=== PATIENT | male | born 1975 | race Caucasian/White ===

== ENCOUNTER → 2016-09-22 | Outpatient (CLI) | payer OTHER ==
[~2016-09-22] MED LIST: APRESOLINE100 MG PO; APRESOLINE50 MG PO; ATENOLOL50 MG PO; CALCIUM ACETAT667 M2 PO; CALCIUM ACETAT667 MG PO; CALCIUM CARB1 TABLET PO; COZAAR50 MG PO; EPOGEN,PRO10000 UNIT SC; ERGOCALCIF50000 UNIT PO; HYDRALAZINE HCL50 MG PO; METOPROLOL TART25 MG PO; METOPROLOL TART50 MG PO; MIRCERA50 MCG/0.3 IV; NEXIUM40 MG PO; NIFEDICAL XL60 MG PO; NORMODYNE,TRAN200 MG PO; NORVASC10 MG PO; PRINIVIL20 MG PO; PROCARDIA10 MG PO; RENA-VITE RX T1 EACH PO; RENAPLEX D PO; SENSIPAR30 MG PO; SODIUM CHLORIDE1 G1 PO; TAMSULOSIN HCL0.4 MG PO; TERAZOSIN HCL2 MG PO; VITAMIN D-3 401 EACH PO
[2016-09-22 10:53] LABS: HEMATOCRIT 26.5 % (38.0-50.0); MCHC 30.6 G/DL (30.0-36.0); MEAN PLAT.VOLUME 9.3 uM^3 (9.0-12.4); PLATELET COUNT 175 K/uL (156-360); RBC DIS.WIDTH-CV 17.9 % (11.8-14.6); RBC DIS.WIDTH-SD 61.4 % (39-53); RED BLOOD COUNT 2.79 M/uL (4.00-5.50); WHITE BLOOD COUNT 5.3 K/uL (4.1-10.2)
[2016-09-22 11:03] LABS: INTER. NORMALIZED RATIO 1.3; PROTHROMBIN TIME 12.8 (9.2-11.2); PTT 31.8 (25-32)
[2016-09-22 11:08] LABS: EOSINOPHIL (%) 2.3 % (0-5); EOSINOPHIL COUNT 0.1 K/uL (0-0.3); IMMATURE GRANULOCYTE (%) 0.2 % (0.0-0.7); LYMPHOCYTE COUNT 0.6 K/uL (1.0-2.8); MONOCYTE (%) 9.9 % (3-12); MONOCYTE COUNT 0.5 K/uL (0-0.8); NEUTROPHIL (%) 76.5 % (45-76); NEUTROPHIL COUNT 4.1 K/uL (1.8-6.4)
[2016-09-22 12:47] LABS: ABS NEUTROPHIL COUNT 4.48; ANISOCYTOSIS 3+; EOSINOPHIL ABS CT 0.05; HYPOCHROMASIA 3+; MACROCYTES 1+; MICROCYTOSIS 2+; PLAT.SUFFICIENCY ADEQUATE; POLYCHROMASIA OCC; USER ID TLW
[2016-09-24 13:43] LABS: Flow Clinical Information ANEMIA (()); Flow Number of Markers 22 (()); Flow Spec Viability 96 % (()); Flow Specimen Type BONE MARROW (())
== END | disposition home or self-care (01) ==
LOC: EDSTATUS 09-07 09:00 → OPR 09-07 09:00
PROVIDERS: Internal Medicine Hematology & Oncology
PROC: 07DS3ZX Extraction of Vertebral Bone Marrow, Percutaneous Approach, Diagnostic (ICD-10-PCS; principal; 2016-09-22)
DX: D63.1 Anemia in chronic kidney disease (principal); R16.1 Splenomegaly, not elsewhere classified; I12.0 Hypertensive chronic kidney disease with stage 5 chronic kidney disease or end stage renal disease; N18.6 End stage renal disease
CPT/HCPCS: 77012; 85025; 85610; 85730; 85999; 88184 90; 88185 90; 88189 90; 88237 90; 88264 90; 88280 90; 88291 90; J3010

== ENCOUNTER → 2016-12-14 | Outpatient (CLI) | payer OTHER ==
[~2016-12-14] MED LIST changes: +FERRIC CITRATE210 MG PO; +NABI650T PO
[2016-12-14 09:08] LABS: TYPE OF FLUID PARACENTESIS
[2016-12-14 10:05] LABS: BODY FLUID LDH 107 IU/L; BODY FLUID PROTEIN 4.7 G/DL
[2016-12-14 11:37] LABS: BODY FLUID EOSINOPHILS 0 % (0-25); BODY FLUID RBC'S 1000 /MM^3 (0-100); BODY FLUID WBC'S 349 /MM^3 (0-500); MONONUCLEAR WBC'S 76 %; POLYNUCLEAR WBC'S 24 % (0-25)
== END | disposition home or self-care (01) ==
LOC: RAD 08:04
PROVIDERS: Internal Medicine Nephrology
PROC: 0W9G3ZZ Drainage of Peritoneal Cavity, Percutaneous Approach (ICD-10-PCS; principal; 2016-12-14)
DX: R18.8 Other ascites (principal)
CPT/HCPCS: 82945; 83615 91; 84157; 89051

== ENCOUNTER → 2017-01-12 | Outpatient (CLI) | payer OTHER ==
[2017-01-12 08:45] LABS: TYPE OF FLUID PERITONEAL
[2017-01-12 09:34] LABS: BODY FLUID EOSINOPHILS 0 % (0-25); BODY FLUID RBC'S 1000 /MM^3 (0-100); BODY FLUID WBC'S 627 /MM^3 (0-500); MONONUCLEAR WBC'S 76 %; POLYNUCLEAR WBC'S 24 % (0-25)
[2017-01-12 09:47] LABS: BODY FLUID PROTEIN 4.7 G/DL
== END | disposition home or self-care (01) ==
LOC: RAD 01-10 08:30
PROVIDERS: Internal Medicine Gastroenterology
PROC: 0W9G3ZZ Drainage of Peritoneal Cavity, Percutaneous Approach (ICD-10-PCS; principal; 2017-01-12)
DX: R18.8 Other ascites (principal)
CPT/HCPCS: 84157; 87070; 87205; 88108; 88305; 89051

== ENCOUNTER → 2017-02-14 | Outpatient (CLI) | payer OTHER | END | disposition home or self-care (01) | LOC: RAD 12:53 | PROC: 0W9G3ZZ Drainage of Peritoneal Cavity, Percutaneous Approach (ICD-10-PCS; principal; 2017-02-14) | DX: R18.8 Other ascites (principal) ==

== ENCOUNTER → 2017-03-17 | Outpatient (CLI) | payer OTHER | END | disposition home or self-care (01) | LOC: RAD 08:13 | PROC: 0W9G3ZZ Drainage of Peritoneal Cavity, Percutaneous Approach (ICD-10-PCS; principal; 2017-03-17) | DX: R18.8 Other ascites (principal) | CPT/HCPCS: 49083 ==

== ENCOUNTER → 2017-04-06 | Outpatient (CLI) | payer OTHER | END | disposition home or self-care (01) | LOC: RAD 13:11 | PROC: 0W9G3ZZ Drainage of Peritoneal Cavity, Percutaneous Approach (ICD-10-PCS; principal; 2017-04-06) | DX: R18.8 Other ascites (principal) | CPT/HCPCS: 49083 ==

== ENCOUNTER → 2017-04-18 | Outpatient (CLI) | payer OTHER ==
[2017-04-18 09:14] LABS: INTER. NORMALIZED RATIO 1.4; PROTHROMBIN TIME 15.6 SEC (10.2-12.9)
[2017-04-18 09:17] LABS: PTT 37.9 SEC (25-37)
== END | disposition home or self-care (01) ==
LOC: RAD 08:05
PROVIDERS: Radiology Diagnostic Radiology
PROC: 0W9G3ZZ Drainage of Peritoneal Cavity, Percutaneous Approach (ICD-10-PCS; principal; 2017-04-18)
DX: R18.8 Other ascites (principal)
CPT/HCPCS: 49083; 85610; 85730

== ENCOUNTER 2017-04-28 18:50 | Emergency (ER) | payer OTHER ==
[~2017-04-28] VITALS: Ht 177.8 cm; Wt 119.6 kg
[2017-04-28 19:54] LABS: HEMATOCRIT 24.7 % (38.0-50.0); MCH 27.5 PG (29.0-34.0); MCHC 31.2 G/DL (30.0-36.0); MCV 88.2 FL (86-99); MEAN PLAT.VOLUME 8.2 uM^3 (9.0-12.4); PLATELET COUNT 192 K/uL (156-360); RBC DIS.WIDTH-SD 55.4 % (39-53); WHITE BLOOD COUNT 5.3 K/uL (4.1-10.2)
[2017-04-28 20:07] LABS: CHLORIDE 103 mEq/L (99-109); POTASSIUM 5.1 mEq/L (3.7-5.4); SODIUM 143 mEq/L (136-147)
[2017-04-28 20:09] LABS: GLUCOSE 106 mg/dL (70-99)
[2017-04-28 20:10] LABS: ANION GAP 11 MEQ/L (2-14)
[2017-04-28 20:11] LABS: TOTAL BILIRUBIN 0.9 mg/dL (0.0-1.0)
[2017-04-28 20:13] LABS: ALKALINE PHOSPHATASE 135 IU/L (3-129); GFR ESTIMATE (CALCULATED) 11 mL/min/
[2017-04-28 20:14] LABS: UREA NITROGEN (BUN) 26 mg/dL (9-23)
[2017-04-28 22:52] VITALS: BP 155/95
== END 2017-04-28 23:09 | disposition home or self-care (01) ==
LOC: EME 18:50
PROVIDERS: Physician Assistant Medical
PROC: 0W9G3ZZ Drainage of Peritoneal Cavity, Percutaneous Approach (ICD-10-PCS; principal; 2017-04-28)
DX: T80.89XA Other complications following infusion, transfusion and therapeutic injection, initial encounter (principal); R18.8 Other ascites; Y84.1 Kidney dialysis as the cause of abnormal reaction of the patient, or of later complication, without mention of misadventure at the time of the procedure; N18.6 End stage renal disease; I12.0 Hypertensive chronic kidney disease with stage 5 chronic kidney disease or end stage renal disease; K21.9 Gastro-esophageal reflux disease without esophagitis; Z87.891 Personal history of nicotine dependence
CPT/HCPCS: 49083; 80053; 81003; 85027; 99281; 99284

== ENCOUNTER → 2017-05-04 | Outpatient (CLI) | payer OTHER | END | disposition home or self-care (01) | LOC: RAD 11:17 | PROC: 0W9G3ZZ Drainage of Peritoneal Cavity, Percutaneous Approach (ICD-10-PCS; principal; 2017-05-04) | DX: R18.8 Other ascites (principal) | CPT/HCPCS: 49083 ==

== ENCOUNTER → 2017-05-10 | Outpatient (CLI) | payer OTHER | END | disposition home or self-care (01) | LOC: RAD 13:05 | PROC: 0W9G3ZZ Drainage of Peritoneal Cavity, Percutaneous Approach (ICD-10-PCS; principal; 2017-05-10) | DX: R18.8 Other ascites (principal) | CPT/HCPCS: 49083 ==

== ENCOUNTER → 2017-05-17 | Outpatient (CLI) | payer OTHER | END | disposition home or self-care (01) | LOC: RAD 12:40 | PROC: 0W9G3ZZ Drainage of Peritoneal Cavity, Percutaneous Approach (ICD-10-PCS; principal; 2017-05-17) | DX: R18.8 Other ascites (principal) | CPT/HCPCS: 49083 ==

== ENCOUNTER → 2017-05-24 | Outpatient (CLI) | payer OTHER | END | disposition home or self-care (01) | LOC: RAD 12:38 | PROC: 0W9G3ZZ Drainage of Peritoneal Cavity, Percutaneous Approach (ICD-10-PCS; principal; 2017-05-24) | DX: R18.8 Other ascites (principal) | CPT/HCPCS: 49083 ==

== ENCOUNTER → 2017-05-31 | Outpatient (CLI) | payer OTHER | END | disposition home or self-care (01) | LOC: RAD 12:46 | PROC: 0W9G3ZZ Drainage of Peritoneal Cavity, Percutaneous Approach (ICD-10-PCS; principal; 2017-05-31) | DX: R18.8 Other ascites (principal) | CPT/HCPCS: 49083 ==

== ENCOUNTER → 2017-06-07 | Outpatient (CLI) | payer OTHER | END | disposition home or self-care (01) | LOC: RAD 12:45 | PROC: 0W9G3ZZ Drainage of Peritoneal Cavity, Percutaneous Approach (ICD-10-PCS; principal; 2017-06-07) | DX: R18.8 Other ascites (principal) | CPT/HCPCS: 49083 ==

== ENCOUNTER → 2017-06-14 | Outpatient (CLI) | payer OTHER | END | disposition home or self-care (01) | LOC: RAD 12:46 | PROC: 0W9G3ZZ Drainage of Peritoneal Cavity, Percutaneous Approach (ICD-10-PCS; principal; 2017-06-14) | DX: R18.8 Other ascites (principal) | CPT/HCPCS: 49083 ==

== ENCOUNTER → 2017-06-21 | Outpatient (CLI) | payer OTHER | END | disposition home or self-care (01) | LOC: RAD 12:20 | PROC: 0W9G3ZZ Drainage of Peritoneal Cavity, Percutaneous Approach (ICD-10-PCS; principal; 2017-06-21) | DX: R18.8 Other ascites (principal) | CPT/HCPCS: 49083 ==

== ENCOUNTER → 2017-06-22 | Outpatient (CLI) | payer OTHER | END | disposition home or self-care (01) | LOC: RAD 12:56 | PROC: 0W9G3ZZ Drainage of Peritoneal Cavity, Percutaneous Approach (ICD-10-PCS; principal; 2017-06-22) | DX: R18.8 Other ascites (principal) | CPT/HCPCS: 49083 ==

== ENCOUNTER → 2017-06-28 | Outpatient (CLI) | payer OTHER | END | disposition home or self-care (01) | LOC: RAD 12:10 | PROC: 0W9G3ZZ Drainage of Peritoneal Cavity, Percutaneous Approach (ICD-10-PCS; principal; 2017-06-28) | DX: R18.8 Other ascites (principal) | CPT/HCPCS: 49083 ==

== ENCOUNTER → 2017-07-05 | Outpatient (CLI) | payer OTHER | END | disposition home or self-care (01) | LOC: RAD 12:40 | PROC: 0W9G3ZZ Drainage of Peritoneal Cavity, Percutaneous Approach (ICD-10-PCS; principal; 2017-07-05) | DX: R18.8 Other ascites (principal) | CPT/HCPCS: 49083 ==

== ENCOUNTER → 2017-07-19 | Outpatient (CLI) | payer OTHER ==
[~2017-07-19] VITALS: Ht 170.2 cm; Wt 115.0 kg
== END | disposition home or self-care (01) ==
LOC: RAD 12:39
PROC: 0W9G3ZZ Drainage of Peritoneal Cavity, Percutaneous Approach (ICD-10-PCS; principal; 2017-07-19)
DX: R18.8 Other ascites (principal)
CPT/HCPCS: 49083

== ENCOUNTER → 2017-07-26 | Outpatient (CLI) | payer OTHER | END | disposition home or self-care (01) | LOC: RAD 12:30 | PROC: 0W9G3ZZ Drainage of Peritoneal Cavity, Percutaneous Approach (ICD-10-PCS; principal; 2017-07-26) | DX: R18.8 Other ascites (principal) | CPT/HCPCS: 49083 ==

== ENCOUNTER → 2017-08-02 | Outpatient (CLI) | payer OTHER ==
[~2017-08-02] VITALS: Ht 179.1 cm; Wt 109.0 kg
== END | disposition home or self-care (01) ==
LOC: RAD 09:00
PROC: 0W9G3ZZ Drainage of Peritoneal Cavity, Percutaneous Approach (ICD-10-PCS; principal; 2017-08-02)
DX: R16.1 Splenomegaly, not elsewhere classified (principal)
CPT/HCPCS: 49083; 76705

== ENCOUNTER → 2017-08-09 | Outpatient (CLI) | payer OTHER | END | disposition home or self-care (01) | LOC: RAD 12:20 | PROC: 0W9G3ZZ Drainage of Peritoneal Cavity, Percutaneous Approach (ICD-10-PCS; principal; 2017-08-09) | DX: R18.8 Other ascites (principal) | CPT/HCPCS: 49083 ==

== ENCOUNTER → 2017-08-16 | Outpatient (CLI) | payer OTHER | END | disposition home or self-care (01) | LOC: RAD 13:05 | PROC: 0W9G3ZZ Drainage of Peritoneal Cavity, Percutaneous Approach (ICD-10-PCS; principal; 2017-08-16) | DX: R18.8 Other ascites (principal) | CPT/HCPCS: 49083 ==

== ENCOUNTER → 2017-08-22 | Outpatient (CLI) | payer OTHER | END | disposition home or self-care (01) | LOC: RAD 13:00 | PROC: 0W9G3ZZ Drainage of Peritoneal Cavity, Percutaneous Approach (ICD-10-PCS; principal; 2017-08-22) | DX: R18.8 Other ascites (principal) | CPT/HCPCS: 49083 ==

== ENCOUNTER → 2017-08-30 | Outpatient (CLI) | payer OTHER | END | disposition home or self-care (01) | LOC: RAD 12:41 | PROC: 0W9G3ZZ Drainage of Peritoneal Cavity, Percutaneous Approach (ICD-10-PCS; principal; 2017-08-30) | DX: R18.8 Other ascites (principal) | CPT/HCPCS: 49083 ==

== ENCOUNTER → 2017-09-06 | Outpatient (CLI) | payer OTHER | END | disposition home or self-care (01) | LOC: RAD 13:05 | PROC: 0W9G3ZZ Drainage of Peritoneal Cavity, Percutaneous Approach (ICD-10-PCS; principal; 2017-09-06) | DX: R18.8 Other ascites (principal) | CPT/HCPCS: 49083 ==

== ENCOUNTER → 2017-09-12 | Outpatient (CLI) | payer OTHER | END | disposition home or self-care (01) | LOC: RAD 08:15 | PROC: 0W9G3ZZ Drainage of Peritoneal Cavity, Percutaneous Approach (ICD-10-PCS; principal; 2017-09-12) | DX: R18.8 Other ascites (principal) | CPT/HCPCS: 49083 ==

== ENCOUNTER → 2017-09-20 | Outpatient (CLI) | payer OTHER | END | disposition home or self-care (01) | LOC: RAD 12:42 | PROC: 0W9G3ZZ Drainage of Peritoneal Cavity, Percutaneous Approach (ICD-10-PCS; principal; 2017-09-20) | DX: R18.8 Other ascites (principal) | CPT/HCPCS: 49083 ==

== ENCOUNTER → 2017-09-27 | Outpatient (CLI) | payer OTHER ==
[2017-09-27 14:58] LABS: INTER. NORMALIZED RATIO 1.3
[2017-09-27 15:01] LABS: PTT 29.8 SEC (25-37)
== END | disposition home or self-care (01) ==
LOC: RAD 12:28
PROVIDERS: Radiology Diagnostic Radiology
PROC: 0W9G3ZZ Drainage of Peritoneal Cavity, Percutaneous Approach (ICD-10-PCS; principal; 2017-09-27)
DX: R18.8 Other ascites (principal)
CPT/HCPCS: 49083; 85049; 85610; 85730

== ENCOUNTER → 2017-10-03 | Outpatient (CLI) | payer OTHER ==
[~2017-10-03] MED LIST changes: +MIRCERA30 MCG/0.3 IV
== END | disposition home or self-care (01) ==
LOC: RAD 13:10
PROC: 0W9G3ZZ Drainage of Peritoneal Cavity, Percutaneous Approach (ICD-10-PCS; principal; 2017-10-03)
DX: R18.8 Other ascites (principal)
CPT/HCPCS: 49083; 86850; 86900; 86901; 86920

== ENCOUNTER → 2017-10-04 | Outpatient (CLI) | payer OTHER | END | disposition home or self-care (01) | LOC: RAD 12:25 | PROC: 0WJG3ZZ Inspection of Peritoneal Cavity, Percutaneous Approach (ICD-10-PCS; principal; 2017-10-04) | DX: R18.8 Other ascites (principal); Z53.09 Procedure and treatment not carried out because of other contraindication | CPT/HCPCS: 76705 ==

== ENCOUNTER → 2017-10-09 | Outpatient (CLI) | payer OTHER | END | disposition home or self-care (01) | LOC: RAD 12:36 | PROC: 0W9G3ZZ Drainage of Peritoneal Cavity, Percutaneous Approach (ICD-10-PCS; principal; 2017-10-09) | DX: R18.8 Other ascites (principal) | CPT/HCPCS: 49083 ==

== ENCOUNTER → 2017-10-11 | Outpatient (CLI) | payer OTHER | END | disposition home or self-care (01) | LOC: RAD 13:07 | PROC: 0W9G3ZZ Drainage of Peritoneal Cavity, Percutaneous Approach (ICD-10-PCS; principal; 2017-10-11) | DX: R18.8 Other ascites (principal) | CPT/HCPCS: 49083 ==

== ENCOUNTER → 2017-10-18 | Outpatient (CLI) | payer OTHER | END | disposition home or self-care (01) | LOC: RAD 13:15 | PROC: 0W9G3ZZ Drainage of Peritoneal Cavity, Percutaneous Approach (ICD-10-PCS; principal; 2017-10-18) | DX: R18.8 Other ascites (principal) | CPT/HCPCS: 49083 ==

== ENCOUNTER → 2017-10-24 | Outpatient (CLI) | payer OTHER | END | disposition home or self-care (01) | LOC: RAD 08:15 | PROC: 0W9G3ZZ Drainage of Peritoneal Cavity, Percutaneous Approach (ICD-10-PCS; principal; 2017-10-24) | DX: R18.8 Other ascites (principal) | CPT/HCPCS: 49083 ==

== ENCOUNTER → 2017-10-31 | Outpatient (CLI) | payer OTHER | END | disposition home or self-care (01) | LOC: RAD 10-30 13:15 | PROC: 0W9G3ZZ Drainage of Peritoneal Cavity, Percutaneous Approach (ICD-10-PCS; principal; 2017-10-31) | DX: R18.8 Other ascites (principal) | CPT/HCPCS: 49083 ==

== ENCOUNTER → 2017-11-06 | Outpatient (CLI) | payer OTHER | END | disposition home or self-care (01) | LOC: RAD 11:57 | PROC: 0W9G3ZZ Drainage of Peritoneal Cavity, Percutaneous Approach (ICD-10-PCS; principal; 2017-11-06) | DX: R18.8 Other ascites (principal) | CPT/HCPCS: 49083 ==

== ENCOUNTER → 2017-11-08 | Outpatient (CLI) | payer OTHER ==
[2017-11-08 13:56] LABS: TYPE OF FLUID PERITONEAL
[2017-11-08 14:30] LABS: APPEARANCE SL. HAZY-COLORLESS; BODY FLUID EOSINOPHILS 1 % (0-25); BODY FLUID RBC'S 1000 /MM^3 (0-100); BODY FLUID WBC'S 282 /MM^3 (0-500); MONONUCLEAR WBC'S 80 %; POLYNUCLEAR WBC'S 19 % (0-25)
[2017-11-08 15:21] LABS: BODY FLUID PROTEIN < 3.0 G/DL
== END | disposition home or self-care (01) ==
LOC: RAD 12:33
PROVIDERS: Internal Medicine Hematology & Oncology
PROC: 0W9G3ZZ Drainage of Peritoneal Cavity, Percutaneous Approach (ICD-10-PCS; principal; 2017-11-08)
DX: R16.0 Hepatomegaly, not elsewhere classified (principal); R18.8 Other ascites
CPT/HCPCS: 49083; 76705; 84157; 88108; 88305; 88312; 89051; 93975

== ENCOUNTER → 2017-11-13 | Outpatient (CLI) | payer OTHER | END | disposition home or self-care (01) | LOC: RAD 12:45 | PROC: 0W9G3ZZ Drainage of Peritoneal Cavity, Percutaneous Approach (ICD-10-PCS; principal; 2017-11-13) | DX: R18.8 Other ascites (principal) | CPT/HCPCS: 49083 ==

== ENCOUNTER → 2017-11-15 | Outpatient (CLI) | payer OTHER | END | disposition home or self-care (01) | LOC: RAD 13:15 | PROC: 0W9G3ZZ Drainage of Peritoneal Cavity, Percutaneous Approach (ICD-10-PCS; principal; 2017-11-15) | DX: R18.8 Other ascites (principal) | CPT/HCPCS: 49083 ==

== ENCOUNTER → 2017-11-20 | Outpatient (CLI) | payer OTHER ==
[~2017-11-20] MED LIST changes: +CARVEDILOL3.125 MG PO
== END | disposition home or self-care (01) ==
LOC: RAD 12:16
PROC: 0W9G3ZZ Drainage of Peritoneal Cavity, Percutaneous Approach (ICD-10-PCS; principal; 2017-11-20)
DX: R18.8 Other ascites (principal)
CPT/HCPCS: 49083

== ENCOUNTER → 2017-11-22 | Outpatient (CLI) | payer OTHER | END | disposition home or self-care (01) | LOC: RAD 12:48 | PROC: 0W9G3ZZ Drainage of Peritoneal Cavity, Percutaneous Approach (ICD-10-PCS; principal; 2017-11-22) | DX: R18.8 Other ascites (principal) | CPT/HCPCS: 49083 ==

== ENCOUNTER → 2017-11-23 | Outpatient (CLI) | payer OTHER ==
[2017-11-23 09:10] LABS: BASOPHIL (%) 0.4 % (0-1); EOSINOPHIL (%) 2.8 % (0-5); EOSINOPHIL COUNT 0.1 K/uL (0-0.3); HEMOGLOBIN 7.8 G/DL (12.5-16.6); IMMATURE GRANULOCYTE (%) 0.4 % (0.0-0.7); LYMPHOCYTE (%) 11.8 % (15-42); LYMPHOCYTE COUNT 0.6 K/uL (1.0-2.8); MCH 30.1 PG (29.0-34.0); MCHC 31.2 G/DL (30.0-36.0); MCV 96.5 FL (86-99); MONOCYTE (%) 7.3 % (3-12); MONOCYTE COUNT 0.3 K/uL (0-0.8); NEUTROPHIL (%) 77.3 % (45-76); NEUTROPHIL COUNT 3.6 K/uL (1.8-6.4); PLATELET COUNT 152 K/uL (156-360); RBC DIS.WIDTH-CV 17.2 % (11.8-14.6); RBC DIS.WIDTH-SD 61.4 % (39-53); RED BLOOD COUNT 2.59 M/uL (4.00-5.50); WHITE BLOOD COUNT 4.7 K/uL (4.1-10.2)
[2017-11-23 09:19] LABS: INTER. NORMALIZED RATIO 1.2
[2017-11-23 09:22] LABS: PTT 30.1 SEC (25-37)
[2017-11-23 11:09] LABS: ABS NEUTROPHIL COUNT 4.1; ANISOCYTOSIS 1+; BASOPHILS 1.8 %; EOSINOPHIL ABS CT 0.2; EOSINOPHILS 3.5 % (0-5.0); MACROCYTES 1+; MONOCYTES 0.9 % (0-9.0); PLAT.SUFFICIENCY ADEQUATE; POLYCHROMASIA 1+; SEG.NEUTROPHILS 86.8 % (46.0-76.0)
[2017-11-25 15:20] LABS: NUMBER OF MARKERS 22; SPECIMEN TYPE BONE MARROW; SPECIMEN VIABILITY 97
== END | disposition home or self-care (01) ==
LOC: EDSTATUS 08:00 → OPR 08:00
PROVIDERS: Internal Medicine Hematology & Oncology
DX: D64.9 Anemia, unspecified (principal)
CPT/HCPCS: 77012; 85007; 85025; 85610; 85730; J3010

== ENCOUNTER → 2017-11-27 | Outpatient (CLI) | payer OTHER | END | disposition home or self-care (01) | LOC: RAD 13:13 | PROC: 0W9G3ZZ Drainage of Peritoneal Cavity, Percutaneous Approach (ICD-10-PCS; principal; 2017-11-27) | DX: R18.8 Other ascites (principal) | CPT/HCPCS: 49083 ==

== ENCOUNTER → 2017-11-29 | Outpatient (CLI) | payer OTHER | END | disposition home or self-care (01) | LOC: RAD 11:21 | PROC: 0W9G3ZZ Drainage of Peritoneal Cavity, Percutaneous Approach (ICD-10-PCS; principal; 2017-11-29) | DX: R18.8 Other ascites (principal) | CPT/HCPCS: 49083 ==

== ENCOUNTER 2017-12-02 16:57 | Emergency (ER) | payer OTHER ==
[~2017-12-02] VITALS: Ht 177.8 cm; Wt 116.3 kg
[2017-12-02 17:20] VITALS: BP 177/93
== END 2017-12-02 20:01 | disposition home or self-care (01) ==
LOC: EME 16:57
PROC: 0HQ7XZZ Repair Abdomen Skin, External Approach (ICD-10-PCS; principal; 2017-12-02)
DX: T81.89XA Other complications of procedures, not elsewhere classified, initial encounter (principal); Y84.4 Aspiration of fluid as the cause of abnormal reaction of the patient, or of later complication, without mention of misadventure at the time of the procedure; R18.8 Other ascites
CPT/HCPCS: 99281; 99284

== ENCOUNTER → 2017-12-04 | Outpatient (CLI) | payer OTHER | END | disposition home or self-care (01) | LOC: RAD 13:08 | PROC: 0W9G3ZZ Drainage of Peritoneal Cavity, Percutaneous Approach (ICD-10-PCS; principal; 2017-12-04) | DX: R18.8 Other ascites (principal) | CPT/HCPCS: 49083 ==

== ENCOUNTER → 2017-12-06 | Outpatient (CLI) | payer OTHER | END | disposition home or self-care (01) | LOC: RAD 13:11 | PROC: 0W9G3ZZ Drainage of Peritoneal Cavity, Percutaneous Approach (ICD-10-PCS; principal; 2017-12-06) | DX: R18.8 Other ascites (principal) | CPT/HCPCS: 49083 ==

== ENCOUNTER → 2017-12-11 | Outpatient (CLI) | payer OTHER | END | disposition home or self-care (01) | LOC: RAD 12:34 | PROC: 0W9G3ZZ Drainage of Peritoneal Cavity, Percutaneous Approach (ICD-10-PCS; principal; 2017-12-11) | DX: R18.8 Other ascites (principal) | CPT/HCPCS: 49083 ==

== ENCOUNTER → 2017-12-13 | Outpatient (CLI) | payer OTHER | END | disposition home or self-care (01) | LOC: RAD 11-06 13:15 | PROC: 0W9G3ZZ Drainage of Peritoneal Cavity, Percutaneous Approach (ICD-10-PCS; principal; 2017-12-13) | DX: R18.8 Other ascites (principal) | CPT/HCPCS: 49083 ==

== ENCOUNTER → 2017-12-18 | Outpatient (CLI) | payer OTHER | END | disposition home or self-care (01) | LOC: RAD 12:18 | PROC: 0W9G3ZZ Drainage of Peritoneal Cavity, Percutaneous Approach (ICD-10-PCS; principal; 2017-12-18) | DX: R18.8 Other ascites (principal) | CPT/HCPCS: 49083 ==

== ENCOUNTER → 2017-12-20 | Outpatient (CLI) | payer OTHER | END | disposition home or self-care (01) | LOC: RAD 12:57 | PROC: 0W9G3ZZ Drainage of Peritoneal Cavity, Percutaneous Approach (ICD-10-PCS; principal; 2017-12-20) | DX: R18.8 Other ascites (principal) | CPT/HCPCS: 49083 ==

== ENCOUNTER → 2017-12-25 | Outpatient (CLI) | payer OTHER | END | disposition home or self-care (01) | LOC: RAD 12:43 | PROC: 0W9G3ZZ Drainage of Peritoneal Cavity, Percutaneous Approach (ICD-10-PCS; principal; 2017-12-25) | DX: R18.8 Other ascites (principal) | CPT/HCPCS: 49083 ==

== ENCOUNTER → 2017-12-27 | Outpatient (CLI) | payer OTHER | END | disposition home or self-care (01) | LOC: RAD 13:05 | PROC: 0WJG3ZZ Inspection of Peritoneal Cavity, Percutaneous Approach (ICD-10-PCS; principal; 2017-12-27) | DX: R18.8 Other ascites (principal); Z53.09 Procedure and treatment not carried out because of other contraindication | CPT/HCPCS: 76705 ==

== ENCOUNTER → 2017-12-29 | Outpatient (CLI) | payer OTHER | END | disposition home or self-care (01) | LOC: RAD 08:15 | PROC: 0W9G3ZZ Drainage of Peritoneal Cavity, Percutaneous Approach (ICD-10-PCS; principal; 2017-12-29) | DX: R18.8 Other ascites (principal) | CPT/HCPCS: 49083 ==

== ENCOUNTER → 2018-01-01 | Outpatient (CLI) | payer OTHER | END | disposition home or self-care (01) | LOC: RAD 13:13 | PROC: 0W9G3ZZ Drainage of Peritoneal Cavity, Percutaneous Approach (ICD-10-PCS; principal; 2018-01-01) | DX: R18.8 Other ascites (principal) | CPT/HCPCS: 49083 ==

== ENCOUNTER → 2018-01-03 | Outpatient (CLI) | payer OTHER | END | disposition home or self-care (01) | LOC: RAD 13:09 | PROC: 0WJG3ZZ Inspection of Peritoneal Cavity, Percutaneous Approach (ICD-10-PCS; principal; 2018-01-03) | DX: R18.8 Other ascites (principal); Z53.09 Procedure and treatment not carried out because of other contraindication | CPT/HCPCS: 76705 ==

== ENCOUNTER → 2018-01-08 | Outpatient (CLI) | payer OTHER | END | disposition home or self-care (01) | LOC: RAD 12:38 | PROC: 0W9G3ZZ Drainage of Peritoneal Cavity, Percutaneous Approach (ICD-10-PCS; principal; 2018-01-08) | DX: R18.8 Other ascites (principal) | CPT/HCPCS: 49083 ==

== ENCOUNTER → 2018-01-10 | Outpatient (CLI) | payer OTHER ==
[~2018-01-10] MED LIST changes: +MIRCERA30 MCG/0.3 INTRA-CATH
== END | disposition home or self-care (01) ==
LOC: RAD 13:05
PROC: 0WJG3ZZ Inspection of Peritoneal Cavity, Percutaneous Approach (ICD-10-PCS; principal; 2018-01-10)
DX: R18.8 Other ascites (principal); Z53.09 Procedure and treatment not carried out because of other contraindication
CPT/HCPCS: 76705

== ENCOUNTER → 2018-01-12 | Outpatient (CLI) | payer OTHER | END | disposition home or self-care (01) | LOC: RAD 11:30 | PROC: 0W9G3ZZ Drainage of Peritoneal Cavity, Percutaneous Approach (ICD-10-PCS; principal; 2018-01-12) | DX: R18.8 Other ascites (principal) | CPT/HCPCS: 49083 ==

== ENCOUNTER → 2018-01-15 | Outpatient (CLI) | payer OTHER | END | disposition home or self-care (01) | LOC: RAD 08:19 | PROC: 0W9G3ZZ Drainage of Peritoneal Cavity, Percutaneous Approach (ICD-10-PCS; principal; 2018-01-15) | DX: R18.8 Other ascites (principal) | CPT/HCPCS: 49083 ==

== ENCOUNTER → 2018-01-17 | Outpatient (CLI) | payer OTHER | END | disposition home or self-care (01) | LOC: RAD 13:04 | PROC: 0W9G3ZZ Drainage of Peritoneal Cavity, Percutaneous Approach (ICD-10-PCS; principal; 2018-01-17) | DX: R18.8 Other ascites (principal) | CPT/HCPCS: 49083 ==

== ENCOUNTER → 2018-01-22 | Outpatient (CLI) | payer OTHER | END | disposition home or self-care (01) | LOC: RAD 13:05 | PROC: 0W9G3ZZ Drainage of Peritoneal Cavity, Percutaneous Approach (ICD-10-PCS; principal; 2018-01-22) | DX: R18.8 Other ascites (principal) | CPT/HCPCS: 49083 ==

== ENCOUNTER → 2018-01-24 | Outpatient (CLI) | payer OTHER | END | disposition home or self-care (01) | LOC: RAD 13:15 | PROC: 0WJG3ZZ Inspection of Peritoneal Cavity, Percutaneous Approach (ICD-10-PCS; principal; 2018-01-24) | DX: R18.8 Other ascites (principal); Z53.09 Procedure and treatment not carried out because of other contraindication | CPT/HCPCS: 76705 ==

== ENCOUNTER → 2018-01-26 | Outpatient (CLI) | payer OTHER | END | disposition home or self-care (01) | LOC: RAD 08:06 | PROC: 0W9G3ZZ Drainage of Peritoneal Cavity, Percutaneous Approach (ICD-10-PCS; principal; 2018-01-26) | DX: R18.8 Other ascites (principal) | CPT/HCPCS: 49083 ==

== ENCOUNTER → 2018-01-31 | Outpatient (CLI) | payer OTHER | END | disposition home or self-care (01) | LOC: RAD 12:49 | PROC: 0W9G3ZZ Drainage of Peritoneal Cavity, Percutaneous Approach (ICD-10-PCS; principal; 2018-01-31) | DX: R18.8 Other ascites (principal) | CPT/HCPCS: 49083 ==

== ENCOUNTER → 2018-02-02 | Outpatient (CLI) | payer OTHER | END | disposition home or self-care (01) | LOC: RAD 11:30 | PROC: 0W9G3ZZ Drainage of Peritoneal Cavity, Percutaneous Approach (ICD-10-PCS; principal; 2018-02-02) | DX: R18.8 Other ascites (principal) | CPT/HCPCS: 49083 ==

== ENCOUNTER → 2018-02-06 | Outpatient (CLI) | payer OTHER | END | disposition home or self-care (01) | LOC: RAD 08:30 | PROC: 0W9G3ZZ Drainage of Peritoneal Cavity, Percutaneous Approach (ICD-10-PCS; principal; 2018-02-06) | DX: R18.8 Other ascites (principal) | CPT/HCPCS: 49083 ==

== ENCOUNTER → 2018-02-09 | Outpatient (CLI) | payer OTHER | END | disposition home or self-care (01) | LOC: RAD 02-08 13:15 | PROC: 0W9G3ZZ Drainage of Peritoneal Cavity, Percutaneous Approach (ICD-10-PCS; principal; 2018-02-09) | DX: R18.8 Other ascites (principal) | CPT/HCPCS: 49083 ==

== ENCOUNTER → 2018-02-13 | Outpatient (CLI) | payer OTHER | END | disposition home or self-care (01) | LOC: RAD 02-12 13:30 | PROC: 0W9G3ZZ Drainage of Peritoneal Cavity, Percutaneous Approach (ICD-10-PCS; principal; 2018-02-13) | DX: R18.8 Other ascites (principal) | CPT/HCPCS: 49083 ==

== ENCOUNTER → 2018-02-16 | Outpatient (CLI) | payer OTHER | END | disposition home or self-care (01) | LOC: RAD 02-14 13:30 | PROC: 0W9G3ZZ Drainage of Peritoneal Cavity, Percutaneous Approach (ICD-10-PCS; principal; 2018-02-16) | DX: R18.8 Other ascites (principal) | CPT/HCPCS: 49083 ==

== ENCOUNTER → 2018-02-20 | Outpatient (CLI) | payer OTHER | END | disposition home or self-care (01) | LOC: RAD 02-19 13:30 | PROC: 0W9G3ZZ Drainage of Peritoneal Cavity, Percutaneous Approach (ICD-10-PCS; principal; 2018-02-20) | DX: R18.8 Other ascites (principal) | CPT/HCPCS: 49083 ==

== ENCOUNTER → 2018-02-23 | Outpatient (CLI) | payer OTHER | END | disposition home or self-care (01) | LOC: RAD 02-21 13:30 | PROC: 0W9G3ZZ Drainage of Peritoneal Cavity, Percutaneous Approach (ICD-10-PCS; principal; 2018-02-23) | DX: R18.8 Other ascites (principal) | CPT/HCPCS: 49083 ==

== ENCOUNTER → 2018-02-27 | Outpatient (CLI) | payer OTHER | END | disposition home or self-care (01) | LOC: RAD 02-26 13:30 | PROC: 0W9G3ZZ Drainage of Peritoneal Cavity, Percutaneous Approach (ICD-10-PCS; principal; 2018-02-27) | DX: R18.8 Other ascites (principal) | CPT/HCPCS: 49083 ==